=== PATIENT | female | born 1970 | race Caucasian/White ===

== ENCOUNTER 2018-01-11 10:18 | Emergency (ER) | payer OTHER ==
[~2018-01-11] VITALS: Ht 170.2 cm; Wt 79.5 kg
[2018-01-11 10:43] LABS: HEMATOCRIT 43.8 % (36.0-46.0); HEMOGLOBIN 15.5 G/DL (11.9-15.5); MCH 31.2 PG (29.0-34.0); MCHC 35.4 G/DL (30.0-36.0); MCV 88.1 FL (83-99); RBC DIS.WIDTH-CV 12.6 % (11.8-14.6); RBC DIS.WIDTH-SD 41.1 % (39-53); RED BLOOD COUNT 4.97 M/uL (3.80-5.20)
[2018-01-11 10:54] LABS: CHLORIDE 103 mEq/L (99-109); POTASSIUM 3.7 mEq/L (3.7-5.4)
[2018-01-11 10:55] LABS: SODIUM 137 mEq/L (136-147)
[2018-01-11 10:56] LABS: GLUCOSE 100 mg/dL (70-99)
[2018-01-11 11:00] LABS: CREATININE 0.8 mg/dL (0.6-1.3); GFR ESTIMATE (CALCULATED) > 59 mL/min/
[2018-01-11 11:01] LABS: UREA NITROGEN (BUN) 14 mg/dL (9-23)
[2018-01-11 11:23] LABS: PLATELET COUNT 263 K/uL (156-360)
[2018-01-11] MEDS ORDERED: VENTOLIN HFA18 GM IH (15:49)
[2018-01-11 16:01] VITALS: BP 146/99
== END 2018-01-11 16:03 | disposition home or self-care (01) ==
LOC: EME 10:18
PROVIDERS: Physician Assistant
DX: R06.02 Shortness of breath (principal); Z98.890 Other specified postprocedural states; I10 Essential (primary) hypertension; Z86.73 Personal history of transient ischemic attack (TIA), and cerebral infarction without residual deficits
CPT/HCPCS: 71046; 71275; 80048; 85027; 85379; 93005; 99281; 99284